=== PATIENT | male | born 1990 | race Caucasian/White ===

== ENCOUNTER 2025-03-27 15:38 | Outpatient (REF) | payer MEDICAID, SELFPAY ==
--- OUTSIDE RECORDS SUMMARY | 2025-03-27 14:00 | XMS_ITS | Encounter Summary ---
Author Organization [employer] Address [address] [place] [address] 7 [place] [address] Care Team Providers Care Plaster Block Layer Name Role Phone Marcie Francois NP Primary Care Provider [phone] Reason for Visit * Reason Comments New pt Encounter Details Date Type Department Care Team ([facility] st Contact Info) Description 03/27/2025 2:00 PM EST Office Visit [facility] [address] [place] [address] Marcie Francois NP [address] [place] [address] Elevated blood pressure reading (Primary Dx); Routine screening for STI (sexually transmitted infection); Encounter for health-related screening; Tick bite, unspecified site, subsequent encounter; Overweight (BMI 25.0-29.9) Social History Tobacco Use Types Packs/Day Years Used Date Smoking Tobacco: Former Cigarettes Tobacco Cessation:Counseling Given: Not Answered Alcohol Answer Date Recorded How often do you have a drink containing alcohol ? 1 03/27/2025 How many drinks containing a lcohol do you have on a typical day when you are drinking? 0 03/27/2025 How often do you have six or more drinks on one occasion? 0 03/27/2025 Depression Answer Date Recorded Patient Health Questionnaire-9 Score 3 03/27/2025 Patient Health Questionnaire-9 Score 3 03/27/2025 Last PHQ-9: Questionnaire Data Not on file 1 05/28/2024 Housing Stability Answer Date Recorded What is your housing situation today? I have housing today, but I am worried about losing housing in the future 03/27/[address] you li ve. Do you have problems with any of the following? Pests such as bugs, ants, or mice 03/27/2025 Food Insecurity Answer Date Recorded Within the past 12 months, y ou worried that your food would run out before you got money to buy more: Sometimes True 2024 Within the past 12 months,th e food you bought just didn't last and you didn't have enough money to get more: Sometimes True 03/27/2025 Transportation Answer Date Recorded In the past 12 months, has l ack of transportation kept you from medical appts, meetings, work or from getting things needed for daily living? I am not sure 03/27/2025 Utilities Answer Date Recorded In the past 12 months, has t he electric, gas, oil or water company threatened to shut off services in your home? No 03/27/2025 Depression Answer Date Recorded Patient Health Questionnaire-2 Score 1 03/27/2025 Internet Access Answer Date Recorded Internet Access Q1 Yes 03/27/2025 Internet Access Q2 Not on file 03/27/2025 Sex and Gender Information Value Date Recorded Sex Assigned at Male 03/27/2025 11:12 AM EST Legal Sex Male 11:11 AM EST Gender Identity Male 03/27/2025 11:12 AM EST Sexual Orientation Straight 03/27/2025 11 :12 AM EST documented as of this encounter Last Filed Vital Signs Vital Sign Reading Time Taken Comments Blood Pressure 148/90 03/27/2025 1:58 PM EST Pulse 68 03/27/2025 1:58 PM EST Temperature 36.7 C (98.1 F) 03/27/2025 1:58 PM EST Respiratory Rate 18 03/27/2025 1:58 PM EST Oxygen Saturation - - Inhaled Oxygen Concentration - - Weight 98.5 kg (217 lb 3.2 oz) 03/27/2025 1:58 P M EST Height 185.4 cm (6' 1 ) 03/27/2025 1:58 PM EST Body Mass Index 28.66 03/27/2025 1:58 PM EST documented in this encounter Functional Status * Over the past 2 weeks, how often have you been bothered by any of the following problems? Question Answer Date of Assessment Author Patient Health Questionnaire -2 Score 1 03/27/2025 3:38 PM EST Giovani Newton MA * Little interest or pleasure in doing things Answer Date of Assessment Author Not at all 03/27/2025 3:38 PM Giovani Erazo MA * Feeling down, depressed, or hopeless Answer Date of Assessment Author Several days 03/27/2025 3:38 PM Giovani Erazo MA * Trouble falling or staying asleep, or sleeping too much Answer Date of Assessment Author Not at all 03/27/2025 3:38 PM Giovani Erazo MA * Feeling tired or having little energy Answer Date of Assessment Author Not at all 03/27/2025 3:38 PM Giovani Erazo MA * Poor appetite or overeating Answer Date of Assessment Author Several days 03/27/2025 3:38 PM Giovani Erazo MA * Feeling bad about yourself - or that you are a failure or have let yourself or your family down Answer Date of Assessment Author Several days 03/27/2025 3:38 PM Giovani Erazo MA * Trouble concentrating on things, such as reading the newspaper or watching television Answer Date of Assessment Author Not at all 03/27/2025 3:38 PM Giovani Erazo MA * Moving or speaking so slowly that other people could have noticed? Or the opposite - being so fidgety or restless that you have been moving around a lot more than usual. Answer Date of Assessment Author Not at all 03/27/2025 3:38 PM Giovani Erazo MA * Thoughts that you would be better off or hurting yourself in some way Answer Date of Assessment Author Not at all 03/27/2025 3:38 PM Giovani Erazo MA * Patient Health Questionnaire-9 Score Answer Date of Assessment Author 3 03/27/2025 3:38 PM Giovani Erazo MA * Over the last 2 weeks, how often have you been bothered by any of the following problems? Question Answer Date of Assessment Author Feeling nervous, anxious, or on edge 1 03/27/2025 3:39 PM Giovani Erazo MA Not being able to stop or co ntrol worrying 1 03/27/2025 3:39 PM EST Giovani Newton MA Worrying too much about diff erent things 1 03/27/2025 3:39 PM EST Giovani Newton MA Trouble relaxing 1 03/27/2025 3:39 PM EST Giovani Atkins MA Being so restless that it is hard to sit still 0 03/27/2025 3:39 PM Giovani Erazo MA Becoming easily annoyed or irritable 1 03/27/2025 3:39 PM EST Giovani Newton MA Feeling afraid as if somethi ng awful might happen 1 03/27/2025 3:39 PM Giovani Erazo MA KAILASH-7 Total Score 6 03/27/2025 3:39 PM Giovani Erazo MA * How difficult have these problems made it for you to do your work, take care of things at home, or get along with other people? Answer Date of Assessment Author Not difficult at all 03/27/2025 3:38 PM EST Giovani Chau MA documented as of this encounter Plan of Treatment Upcoming Encounters Date Type Department Care Team (Late st Contact Info) Description 04/16/2025 11:30 AM EST Office Visit [facility] [address] [place] [address] Marcie Francois NP [address] [place] [address] Scheduled Orders Name Type Priority Associated Diagnoses Orde r Schedule Lipid Panel, Standard Lab Routine Encounter for health-related screening Expected: 03/27/2025 (Approximate), Expires: 03/27/2026 CBC auto differential Lab Routine Tick bite, unspecified site, subsequent encounter Expected: 03/27/2025 (Approximate), Expires: 03/27/2026 Hemoglobin A1c Lab Routine Encounter for health-related screening Expected: 03/27/2025 (Approximate), Expires: 03/27/2026 Comprehensive Metabolic Panel Lab Routine Elevated blood pressure reading Expected: 03/27/2025 (Approximate), Expires: 03/27/2026 HIV-1/2 Antigen and Antibodies, Fourth Generation, with Reflexes Lab Routine Routine screening for STI (sexually transmitted infection) Expected: 03/27/2025 (Approximate), Expires: 03/27/2026 Hepatitis C Antibody with Reflex to HCV, RNA, Quantitative, Real-Time PCR Lab Routine Routine screening for STI (sexually transmitted infection) Expected: 03/27/2025 (Approximate), Expires: 03/27/2026 Hepatitis B Core Antibody, Total Lab Routine Routine screening for STI (sexually transmitted infection) Expected: 03/27/2025 (Approximate), Expires: 03/27/2026 Hepatitis B Surface Antibody, Qualitative Lab Routine Routine screening for STI (sexually transmitted infection) Expected: 03/27/2025 (Approximate), Expires: 03/27/2026 Hepatitis B surface antigen, EIA Lab Routine Routine screening for STI (sexually transmitted infection) Expected: 03/27/2025 (Approximate), Expires: 03/27/2026 Syphilis Screen Lab Routine Routine screening for STI (sexually transmitted infection) Expected: 03/27/2025 (Approximate), Expires: 03/27/2026 Chlamydia/N. Gonorrhoeae, PCR, Urine Lab Routine Routine screening for STI (sexually transmitted infection) Ordered: 03/27/2025 Trichomonas RNA (Urine/Vaginal) Lab Routine Routine screening for STI (sexually transmitted infection) Ordered: 03/27/2025 TSH W/Reflex to FT4 Lab Routine Overweight (BMI 25.0-29.9) Expected: 03/27/2025 (Approximate), Expires: 03/27/2026 Lyme Disease Ab with Reflex to Blot (IgG, IgM) Lab Routine Tick bite, unspecified site, subsequent encounter Expected: 03/27/2025, Expires: 03/27/2026 documented as of this encounter Visit Diagnoses Diagnosis Elevated blood pressure reading- Primary Elevated blood pressure reading without diagnosis of hypertension Routine screening for STI (sexually transmitted infection) Screening examination for venereal disease Encounter for health-related screening Tick bite, unspecified site, subsequent encounter Overweight (BMI 25.0-29.9) Overweight documented in this encounter Additional Health Concerns Assessment Noted Time PHQ-9 Depression Total Score: 3 03/27/20 25 3:38 PM EST documented as of this encounter Care Teams Plaster Block Layer Relationship Specialty Start Date End Date Marcie Francois NP [address] [place] [id number] PCP - General Family Medicine 03/27/25 documented as of this encounter
--- OUTSIDE RECORDS SUMMARY | 2025-03-27 16:38 | XMS_ITS | Encounter Summary ---
Author Organization [employer] Address [address] [facility] 7t [place] [address] Care Team Providers Care Sales Order Processor Name Role Phone Marcie Francois DEAN Primary Care Provider [phone] Encounter Details Date Type Department Care Team (Latest Contact Info) Description 03/27/2025 Travel Social History Tobacco Use Types Packs/Day Years Used Date Smoking Tobacco: Former Cigarettes Alcohol Answer Date Recorded How often do [...] AM EST documented as of this encounter Plan of Treatment Upcoming Encounters Date Type Department Care Team (Late st Contact Info) Description 04/16/2025 11:30 AM EST Office Visit [facility] [address] [place] [address] Marcie Francois NP [address] [place] [address] documented as of this encounter Visit Diagnoses Not on filedocumented in this encounter Additional Health Concerns Assessment Noted Time PHQ-9 Depression Total Score: 3 03/27/20 25 3:38 PM EST documented as of this encounter Care Teams Sales Order Processor Relationship Specialty Start Date End Date Marcie Francois NP [address] [place] [address] PCP - General Family Medicine 03/27/25 documented as of this encounter
--- OUTSIDE RECORDS SUMMARY | 2025-03-27 16:38 | XMS_ITS | Encounter Summary ---
Author Organization [employer] Address [address] [facility] 7t [place] [address] Care Team Providers Care Hospital Coordinator Name Role Phone Marcie Francois NP Primary Care Provider [phone] Reason for Visit * Reason Onset Date Comments new patient- here to establish care 03/27/2025 Encounter Details Date Type Department Care Team ([facility] st Contact Info) Description 03/27/2025 Telephone [facility] [address] [place] [address] Marcie Francois NP [address] [place] [address] new patient- here to establish care Social History Tobacco Use Types Packs/Day Years [...] AM EST documented as of this encounter Miscellaneous Notes * Telephone Encounter - Valorie Elizondo RN - 03/27/2025 11:24 AM EST Assessment: Patient presents to [facility] requesting a new patient appointment to establish care. Per Patient's father, Patient is new to the area as he has been experiencing some mental health issues thathave been concerning to Patient's spouse and his father. Patient's spouse left him until he can gethelp. Father reports Patient has been residing in a tent/ shed in the [facility] in [place], and once Patient's spouse let him know what has been going on he aranged for Patient to come to this area so he could assist him in getting help and getting mentally stable. Father reports Patient has been talking and texting things that do not make sense, such as keeping and sending random lists of peop les names. Patient has an increase in anger. Patient reports he is fine- just hasn't seen a doctor for about 7 years, would like STI testing because his seems to be worried about that. Patient denies SI/ HI. 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 Plan of care: Patient seen by [facility] for insurance verification. Chart created, Patient will return at 2pm for New Patient appointment on Marcie Ramírez. Valorie Elizondo, RN documented in this encounter Plan of Treatment Upcoming Encounters Date Type Department Care Team (Late st Contact Info) Description 04/16/2025 11:30 AM EST Office Visit [facility] [address] [place] [address] Marcie Francois NP [address] [place] [address] documented as of this encounter Visit Diagnoses Not on filedocumented in this encounter Additional Health Concerns Assessment Noted Time PHQ-9 Depression Total Score: 3 03/27/20 25 3:38 PM EST documented as of this encounter Care Teams Hospital Coordinator Relationship Specialty Start Date End Date Marcie Francois NP [address] [place] [address] PCP - General Family Medicine 03/27/25 documented as of this encounter
--- OUTSIDE RECORDS SUMMARY | 2025-03-27 16:38 | XMS_ITS | Clinical Summary ---
Author Organization [employer] Address [address] [place] [address] 7[address] [place] [address] Care Team Providers Care Product Manager Medical Device Name Role Phone Marcie Francois NP Primary Care Provider [phone] Allergies Active Allergy Reactions Criticality Noted Date Comments Gramineae Pollens 03/27/2025 Medications Blood Pressure kitIndications:E levated blood pressure reading 1 kit 1 (one) time per week. 1 kit 03/27/2025 Active Encounters Date Type Department Care Team Description 03/27/2025 2:00 PM EST Office Visit [facility] [address] [place] [phone] Marcie Francois NP Elevated blood pressure reading (Primary Dx); Routine screening for STI (sexually transmitted infection); Encounter for health-related screening; Tick bite, unspecified site, subsequent encounter; Overweight (BMI 25.0-29.9) 03/27/2025 Travel 03/27/2025 Telephone [facility] [address] [place] [phone] Marcie Francois NP new patient- here to establish care from Last 3 Months Family History Medical History Relation Name Comments Diabetes Father Alzheimer's disease Maternal Grandfather Bipolar disorder Mother Mental illness Mother Alcohol abuse Paternal Grandfather Alzheimer's disease Paternal Grandfather Alcohol abuse Paternal Grandmother Kidney cancer Paternal Grandmother blood cancer Paternal Grandmother Relation Name Status Comments Father Maternal Grandfather Mother Paternal Grandfather Paternal Grandmother Social History Tobacco Use Types Packs/Day Years [...] Orientation Straight 03/27/2025 11 :12 AM EST Last Filed Vital Signs Vital Sign Reading [...] Mass Index 28.66 03/27/2025 1:58 PM EST Plan of Treatment Upcoming Encounters Date Type Department Care Team (Late st Contact Info) Description 04/16/2025 11:30 AM EST Office Visit [facility] [address] [place] [address] Marcie Francois NP [address] [place] [address] Health Maintenance Due Date Last Done Comments HIV Screening 1992 Family Planning (PISQ) 07/02/2007 HPV Vaccines (1 - Male 3-dos e series) 07/02/2007 Hepatitis C Screening 2010 DTaP/Tdap/Td Vaccines (1 - Tdap) 07/02/2011 Hepatitis B Vaccines (1 of 3 - 19+ 3-dose series) 07/02/2011 COVID-19 Vaccine (1 - 2024-2 6 season) 2024 Influenza Vaccine (#1) 2024 Alcohol/Substance Use Screening 03/27/2026 03/27/2025 Depression Screening 03/27/2026 03/27/2025, 03/27/2025 Disability Screening 03/27/2026 03/27/2025 SDOH Screening 03/27/2026 03/27/2025 Tobacco Screening 03/27/2026 03/27/2025 Zoster Vaccines (1 of 2) 2042 RSV Patients and Patients Aged 60 years or older (1 - 1-dose 75+ series) 07/02/2067 HIB Vaccines Aged Out No longer eligi ble based on patient's age to complete this topic Hepatitis A Vaccines Aged Out No long er eligible based on patient's age to complete this topic IPV Vaccines Aged Out No longer eligi ble based on patient's age to complete this topic Meningococcal B Vaccine Aged Out No l onger eligible based on patient's age to complete this topic Meningococcal Vaccine Aged Out No lee timbo eligible based on patient's age to complete this topic Pneumococcal Vaccine: Pediatrics (0 to 5 Years) and At-Risk Patients (6 to 49) Years Aged Out No longer eligible b ased on patient's age to complete this topic RSV under 20 months Aged Out No longe r eligible based on patient's age to complete this topic Rotavirus Vaccines Aged Out No longer eligible based on patient's age to complete this topic Insurance [email or web address] [facility] Care Teams Product Manager Medical Device Relationship Specialty Start Date End Date Marcie Francois NP [address] [place] [id number] PCP - General Family Medicine 03/27/25
[2025-03-27 16:55] LABS: MANUAL DIFF FLAG NO
[2025-03-27 17:03] LABS: Hematocrit 43.7 % (42.0-52.0); Hemoglobin 14.8 g/dl (14.0-18.0); Imm Gran Abs Auto 0.03 X10*3/uL (0.00-0.03); Imm Gran Pct Auto 0.4 % (0.0-0.4); Lymphocytes Absolute Auto 1.8 X10*3/uL (1.2-4.9); Mean Corpuscular HGB Conc 33.9 g/dl (31.0-36.0); Mean Corpuscular Hemoglobin 27.1 pg (27.0-33.0); Mean Corpuscular Volume 79.9 fL (80.0-98.0); NRBC Abs Auto 0.000 X10*3/uL (0.0-0.012); NRBC Pct Auto 0.0 /100WBC (0.0-0.2); Platelet Count 240 X10*3/uL (160-400); Red Blood Count 5.47 X10*6/uL (4.60-5.80); White Blood Count 7.6 X10*3/uL (4.8-10.8)
[2025-03-27 18:21] LABS: Alanine Aminotransferase 47 U/L (0-40); Albumin Level 4.8 g/dL (3.5-5.0); Alkaline Phosphatase 87 U/L (39-117); Anion Gap 13 (12-20); Aspartate Amino Transferase 35 U/L (5-37); Blood Urea Nitrogen 9 mg/dL (9-16); Calcium 9.6 mg/dL (8.4-10.2); Carbon Dioxide 25 mmol/L (22-29); Chloride 106 mmol/L (96-108); Cholesterol 98 mg/dL (<200); Estimated Glomerular Filt Rate > 60; HDL Cholesterol 34 mg/dL (>40); Potassium 3.6 mmol/L (3.3-5.1); Sodium 140 mmol/L (135-145); Total Protein 6.9 g/dL (6.5-8.0); Triglycerides 77 mg/dL (<150)
[2025-03-28 01:47] LABS: CT PCR Urine NOT DETECTED (Not Detect.); NG PCR Urine NOT DETECTED (Not Detect.)
[2025-03-28 05:32] LABS: Lyme Abs Screen <0.90 index
[2025-03-30 03:52] LABS: Syphilis Screen Nonreactive (Nonreactive)
[2025-03-30 04:16] LABS: HBS Num1 0.00 mIU/mL (0-7.99); HBc Num1 0.04 S/CO (0.00-0.79); HBsAGNum1 0.47 S/CO (0.00-0.99); HIV Num 1 0.10 S/CO (0.00-0.99); Hepatitis B Surface Antigen Negative (Negative); ~HepC Num1 0.08 S/CO (0.00-0.79); ~Hepatitis B Surface Antibody NONREACTIVE (Nonreactive); ~Hepatitis C Antibody Nonreactive (Nonreactive)
== END 2025-03-27 15:39 | disposition home or self-care (01) ==
LOC: HO.HHCL 15:38
PROVIDERS: PCP Nurse Practitioner; Visit Provider Nurse Practitioner
DX: Z01.84 Encounter for antibody response examination (principal); Z11.59 Encounter for screening for other viral diseases; Z11.4 Encounter for screening for human immunodeficiency virus [HIV]; W57.XXXD Bitten or stung by nonvenomous insect and other nonvenomous arthropods, subsequent encounter; R03.0 Elevated blood-pressure reading, without diagnosis of hypertension; E66.3 Overweight; Z20.2 Contact with and (suspected) exposure to infections with a predominantly sexual mode of transmission
CPT/HCPCS: 36415; 80053; 80061; 83036; 84443; 85025; 86617; 86618; 86704; 86706; 86780; 86803; 87340; 87389; 87491; 87591; 87661